=== PATIENT | female | born 1945 | race Caucasian/White ===

== ENCOUNTER → 2017-07-03 | Outpatient (REF) | payer MEDICARE ==
[2016-10-11 15:43] VITALS: BMI 25.4
[~2017-07-03] MED LIST: BIOT10005 PO; BIOT5000 PO; CALC500T6 PO; DIA5 PO; DOCU240C84 PO; FLUO-177 PO; FLUO-201 PO; HYDR-385 PO; IBUP600T22 PO; OXYC-865 PO; POLY17PO25 PO
== END ==
LOC: ZZSENDIN 15:40
PROVIDERS: ATTEND Physician Assistant
DX: Z01.818 Encounter for other preprocedural examination (principal)
CPT/HCPCS: 81001

== ENCOUNTER 2017-07-10 01:08 | Observation (INO) | payer MEDICARE ==
[~2017-07-10] VITALS: Ht 157.5 cm; Wt 64.9 kg
[2017-07-10] VITALS (15 sets, daily range): BP systolic 112–181; BP diastolic 58–92
[2017-07-10] MEDS ORDERED: PROPOFOL EMUL(*) 10MG/ML 20 ML 20 ML ONE (07:02)
[2017-07-10] MEDS ORDERED: DEXAMETHASONE SOD 4 MG/ML VIAL ONE (07:02)
[2017-07-10] MEDS ORDERED: LIDOCAINE MPF 1% 5 ML VIAL ONE (07:02)
[2017-07-10] MEDS ORDERED: ONDANSETRON 4 MG/2 ML VIAL ONE (07:02)
--- NOTE | 2017-07-10 07:21 | LEVENE H&P ---
DATE OF ADMISSION: July 10, 2017 IDENTIFICATION/CHIEF COMPLAINT The patient is a 72-year-old woman with a chief complaint of right knee pain. HISTORY OF PRESENT ILLNESS The patient has a longstanding history of knee arthritis, progressively painful and debilitating, refractory to conservative care. Surgery is indicated to relieve symptoms after failure of nonoperative measures. PAST MEDICAL HISTORY Notable for arthritis, spinal problems. ALLERGIES CODEINE that causes hives. She is sensitive to ADHESIVES, and has nausea and vomiting with SULFA, but not a true drug allergy. CURRENT MEDICATIONS 1. Fluoxetine 10 mg p.o. q.day. 2. Variety of vitamins. PAST SURGICAL HISTORY Notable for spinal fusion, contralateral knee replacement and ankle fusion. FAMILY HISTORY Notable for a mother with dementia, father with emphysema. SOCIAL HISTORY Negative for tobacco use. Drinks alcohol daily, a glass of wine, denies abuse. REVIEW OF SYSTEMS Negative. PHYSICAL EXAMINATION GENERAL: This is a well-developed, well-nourished female who appears stated age. HEENT: She is normocephalic, atraumatic. NECK: Supple. LUNGS: Clear. HEART: Regular. ABDOMEN: Soft. ORTHOPEDIC EXAMINATION: The right knee has crepitus. She has an effusion present. Extensor function is intact. Gross stability is good. Stiff at the end range. Calves nontender. Neurovascular function is intact. Skin is in good condition. RADIOGRAPHIC DATA Radiographs demonstrate end-stage DJD. ASSESSMENT Right knee end-stage degenerative joint disease, progressively painful and debilitating, refractory to conservative care. PLAN Per patient request, we are going to proceed with total knee arthroplasty. Nature of this procedure, risks, benefits, the anticipated rehab course were reviewed. Risks include but are not limited to , major medical or anesthetic complication, infection, neurovascular injury, blood transfusion, stiffness, scarring, fracture, tendon rupture, instability, implant loosening, migration or failure, persistent or recurrent pain, need for additional surgery , and other unforeseen. She understands and wishes to proceed. Signed consent was placed in the chart, no guarantees given or implied. GRACIE
[2017-07-10] MEDS ORDERED: NORMOSOL R SOLN(*) 1000 ML BAG 1,000 ML IV PRN ×2 (07:45→11:25)
[2017-07-10] MEDS ORDERED: FAMOTIDINE 20 MG TAB PO ONE (07:45)
[2017-07-10] MEDS ORDERED: ceFAZolin(*) 1 GM VIAL 1 GM in NS(*) 0.9% 100 ML ADDVANT BAG 100 ML IVPB ONE (07:45)
[2017-07-10] MEDS ORDERED: cloNIDine EPIDUR INJ 100MCG/ML 40 MCG, ROPIVACAINE 0.5% 20 ML VIAL 25 ML, EPINEPHrine H... INJ ONE (07:45)
[2017-07-10] MEDS ORDERED: MIDAZOLAM 2 MG/2 ML VIAL IVP PRN (07:45)
[2017-07-10] MEDS ORDERED: LIDOCAINE/SOD BICARB 8.4% SYR ID ONE (07:45)
[2017-07-10] MEDS ORDERED: TRANEXAMIC AC 1000 MG/10ML SDV 1,000 MG in DEXTROSE 5% 50 ML BAG 50 ML IV ONE (07:45)
[2017-07-10] MEDS ORDERED: fentaNYL CITR 250 MCG/5 ML AMP ONE (08:13)
[2017-07-10] MEDS ORDERED: LACTATED RINGER 3000 ML BAG IR ONE (09:37)
[2017-07-10] MEDS ORDERED: LABETALOL HCL 100 MG/20ML VIAL ONE (09:45)
[2017-07-10] MEDS ORDERED: fentaNYL CITR 100 MCG/2 ML AMP ONE ×2 (11:13→11:28)
[2017-07-10] MEDS ORDERED: MEPERIDINE 50 MG/ML SYR ONE (11:15)
[2017-07-10] MEDS ORDERED: BENZOCAINE/MENTHOL 1 EACH LOZG PO PRN (11:25)
[2017-07-10] MEDS ORDERED: FLUSH 10 ML SYR IVP PRN (11:25)
[2017-07-10] MEDS ORDERED: ACETAMINOPHEN 325 MG TAB PO PRN (11:25)
[2017-07-10] MEDS ORDERED: diphenhydrAMINE 50 MG/ML VIAL IVP PRN (11:25)
[2017-07-10] MEDS ORDERED: MAGNESIUM HYDROXIDE* 30ML UDCP PO PRN (11:25)
[2017-07-10] MEDS ORDERED: PROMETHAZINE 25 MG/ML 1 ML AMP IVP PRN (11:25)
[2017-07-10] MEDS ORDERED: ZOLPIDEM TARTRATE 5 MG TAB PO PRN (11:25)
[2017-07-10] MEDS ORDERED: BISACODYL 10 MG SUPP PR PRN (11:25)
[2017-07-10] MEDS: POLYETHYLENE GLYCOL 17 GM PKT PO SCH (13:14)
[2017-07-10] MEDS: FLUoxetine HCL 10 MG CAP PO SCH (13:14)
--- NOTE | 2017-07-10 13:43 | Hospitalist Consultation ---
History of Present Illness Requesting Physician Nadja Lovett MD Reason for Consult s/p R-TKA and medical management Chief Complaint s/p R-TKA and knee pain History of Present Illness Mrs. Ceballos is a 72 y.o. female with PMH of Arthritis s/p L-TKA in the past , Anxiety and Low back pain s/p Spinal fusion underwent R-TKA by Dr. Lovett today. She tolerated the anesthesia and surgical procedure. I was asked to evaluate this patient for her medical problems during her hospital stay. She is afebrile, asymptomatic and hemodynamically stable. History Home Meds Reported Medications Biotin (Biotin) 10,000 Mcg Capsule, 35649 MCG PO QDAY 07/03/17 Fluoxetine Hcl (PROZAC) 10 Mg Capsule, 10 MG PO QDAY, CAPSULE 04/18/17 Polyethylene Glycol 3350 (MIRALAX) 17 Gm Powd.pack, 17 GM PO QDAY, PKT 10/09/16 Calcium Carbonate (CALCIUM) 500 Mg Tablet, 500 MG PO QDAY 05/20/16 Discontinued Reported Medications Docusate Calcium (SURFAK) 240 Mg Capsule, 240 MG PO QDAY Y for CONSTIPATION, # 14 CAPSULE 04/20/17 Diazepam (VALIUM) 5 Mg Tablet, 5 MG PO Q8H Y for SPASMS, #25 TAB 04/20/17 Hydrocodone Bit/Acetaminophen (HYDROCODON-ACETAMINOPHEN 5-325) 1 Each Tablet, 1- 2 EACH PO Q6H Y for PAIN, #49 TAB 04/20/17 Biotin (Biotin) 5,000 Mcg Tab.rapdis, 1 TAB PO BID 04/18/17 Allergies: Coded Allergies: adhesive tape (Verified Allergy, Severe, blistering, 01/21/17) Sulfa (Sulfonamide Antibiotics) (Verified Allergy, Mild, 01/21/17) codeine (Verified Allergy, Mild, hives, 01/21/17) Uncoded Allergies: narcotics (Adverse Reaction, Mild, "itch skin off", 05/20/16) Patient History: FH: Alzheimers disease MOTHER FH: emphysema FATHER Hx Smoking: No Smoking Status: Never Smoker Exposure to Second Hand Smoke?: Yes (parents smoked) Caffeine Intake: Coffee, Tea Caffeine/Cups Per Day: 3 Hx Alcohol Use: Yes Alcohol Used: Wine Hx Substance Use Disorder: No Social Drug Use: Never Review of Systems Constitutional: No Fever, No Chills Neurological: No Confusion, No Weakness, No Dizziness Eyes: Loss of Vision, No Vision Change ENT: No Sinus Congestion, No Sore Throat Cardiovascular: No Chest Pain, No Palpitations Respiratory: No Shortness of Breath, No Cough Gastrointestinal: No Nausea, No Vomiting, No Diarrhea, No Constipation, No Abdominal Pain Genitourinary: No Dysuria, No Hematuria Musculoskeletal: Pain, Impaired Mobility, No Sprain, No Strain Psychiatric: Anxiety, No Depression Exam Vital Signs Vital Signs Date Time Temp Pulse Resp B/P (MAP) Pulse Ox O2 Delivery O2 Flow Rate FiO2 07/10/17 12:30 94 Nasal Cannula 1.0 07/10/17 12:30 97.6 89 20 151/83 (105) General Appearance: Alert, Awake, No Acute Distress, Afebrile Neuro: No Gross deficits Eyes: PERRLA ENT: Normal Cardiovascular: Normal Rhythm & Peripheral Pulses Respiratory: No Respiratory Distress GI: Abd Soft and Non-Tender : Normal Extremities: Other (RLE with decrease ROM and tenderness) Integumentary: Skin Intact without Lesion / Mass Psych: Alert & Oriented X3, Appropriate Mood & Affect Assessment and Plan Problems: (1) S/P total knee arthroplasty Status: Acute Assessment & Plan: Management as per surgery and PT I will start Aspirin 325mg po qd for DVTP I will use Miralax for constipation. ROM exercised by PT (2) ANXIETY DISORDER DUE TO KNOWN PHYSIOLOGICAL CONDITION Status: Chronic Assessment & Plan: I will continue her Fluoxetine 10mg po qhs Time Spent on Plan of Care: < 30 min Copies to: NADJA LOVETT MD; TAN LUI MD Venous Thromboembolism VTE Risk Physician Assess for VTE Risk: Yes Patient's VTE Risk: Low VTE Diagnostic Test 2 Days Prior to Admit: No Antithrombotics Is Pt On Any Antithrombotics?: No Exam Sepsis Risk: No Definite Risk FLAQUITO ARANDA MD Jul 10, 2017 13:43
[2017-07-10] MEDS: traMADol 50 MG TAB PO PRN (14:05)
--- NOTE | 2017-07-10 14:34 | RADIOLOGY IMAGING REPORT ---
FACILITY: [facility] [place] PATIENT NAME: Jing Ceballos : 1945 MR: [id number] V: [id number] EXAM DATE: ORDERING PHYSICIAN: NADJA STANLEY TECHNOLOGIST: Location: [facility] Patient: Jing Ceballos : 1945 Visit/Account:[id number] Date of Sevice: 07/10/2017 Right knee, two views. HISTORY: Right total knee arthroplasty. COMPARISON: None. The articular surfaces of the distal femur, proximal tibia, and patella have been resected and replac ed with prosthetic components. The components have been secured with cement. Mild cortical irregular ities are present in the lateral aspect of the lateral femoral epicondyle. Alignment is otherwise un remarkable. Air is present in the soft tissues. Skin clips are present anteriorly. IMPRESSION: Slight cortical irregularities of the lateral femoral epicondyle. Otherwise unremarkable knee replacement. Report Dictated By: Real Chawla MD at 07/10/2017 2:27 PM Report E-Signed By: Real Chawla MD at 07/10/2017 2:30 PM WSN:CLIFFORD
[2017-07-10] MEDS: DIAZEPAM 5 MG TAB PO PRN (16:17)
[2017-07-10] MEDS: IBUPROFEN 800 MG TAB PO SCH (16:17)
[2017-07-10] MEDS: ceFAZolin 1 GM VIAL IVPB SCH (16:17)
[2017-07-10] MEDS: diphenhydrAMINE 25 MG CAP PO PRN (18:32)
[2017-07-10] MEDS: APAP/HYDROCODONE 325/7.5 TAB PO PRN ×2 (18:32→19:05)
--- NOTE | 2017-07-11 00:03 | OPERATIVE REPORT 1 ---
EVENT DATE: July 10, 2017 SURGEON: Evan Lovett MD ANESTHESIOLOGIST: José Pineda MD ANESTHESIA: General plus adductor canal block. ANIMAL KEEPER HEAD: Shree Acuña PA-C PREOPERATIVE DIAGNOSIS Right knee degenerative joint disease. POSTOPERATIVE DIAGNOSIS Right knee degenerative joint disease. PROCEDURE PERFORMED Right total knee arthroplasty. ESTIMATED BLOOD LOSS Minimal. DRAINS None. SPECIMENS None. COMPLICATIONS None apparent. TOURNIQUET TIME 62 minutes. IMPLANTS USED MicroPort medial pivot knee, a 4 right femur, a 4 standard tibial baseplate, a 10 mm right 4 CS insert, and a 26 mm patella. INDICATIONS Jing is a 72-year-old woman with intractable pain and disability related to end-stage knee arthritis. Surgery is indicated to relieve symptoms after failure of nonoperative measures. DESCRIPTION OF PROCEDURE The patient was taken to the operating room and placed supine on the operating table. General anesthesia was induced after an adductor canal block was placed preoperatively by the anesthesiologist. Antibiotics and TXA were administered IV. The right lower extremity was prepped and draped in the usual sterile fashion for orthopedic surgery. The limb was exsanguinated with an Esmarch bandage. The tourniquet was inflated to 250 mmHg. A midline longitudinal incision was made and carried down through the skin and subcutaneous tissue to the deep fascia. A full-thickness flap was developed far enough medially to allow a medial parapatellar arthrotomy to be performed. The patella was everted , and the knee was brought into the flexed position. The fat pad, anterior horn to the menisci, and the cruciate ligaments were debrided. Subperiosteal capsule release was performed circumferentially 1 cm around the upper tibial plateau. A step drill was used to enter the distal femur. A 10-inch long alignment guide was used to engage the isthmus. The cut was set for 6 degrees of valgus relative to anatomic axis. The 10 mm resection block was applied and pinned. Cuts were made with an oscillating saw. The sizing guide was applied and positioned for the high point on the lateral ridge. It was set for 3 degrees of external rotation relative to the posterior condyles. There was no evidence of lateral condyle hypoplasia. The block was pinned, and a size 4 was selected. The four-in-one cutting block was applied. Anterior, posterior, posterior chamfer, and anterior chamfer cuts were made respectively. The trial femur had a nice fit. Attention was turned to the tibial preparation. The extramedullary guide was applied and positioned for varus, valgus, posterior slope, and rotation. This was set to resect 2 mm from the relatively deficit lateral tibial plateau. It was dropped down a millimeter or so to ensure an adequate cut. The block was pinned. Extramedullary alignment checked and cuts made with an oscillating saw. After removal of the spurs, gaps were balanced and symmetrical. No additional formal release was required. The 4 tibial baseplate provided optimum bony coverage without soft tissue overhang. The rotational alignment was noted, and this was pinned. The trial CS insert was inserted along with the trial femur. The bone was resected at the chip for the trochlea, and gaps were balanced and symmetrical with ideal soft tissue tension , including a 90-degree drawer test and rock stable in full extension. The patella was then everted and taken from a starting thickness of 20 mm to a residual of 14 mm with a patellar clamp and oscillating saw. The 26 mm patella provided optimal bony coverage. Lug holes were drilled. The patella tracked nicely only after lateral releases. The lateral retinaculum was quite tight. The lateral release was performed inside out with electrocautery, and then the patella tracks nicely. The final tibial preparation was completed, including boss reaming and punching in the fins. The surfaces were copiously lavaged. Mixed polymethyl methacrylate was made, and then the components were cemented in a single stage. Once the cement fully polymerized, the tourniquet was deflated. Meticulous hemostasis was assured. The joint was reduced. The arthrotomy was closed in flexion with #2 Ethibond, the subcutaneous tissue with 3-0 Vicryl, and the skin with surgical rogerio. Xeroform was applied with 4 x 4 dry, sterile dressing. The patient was awakened from anesthesia and taken to the recovery room in stable condition having tolerated the procedure well. The plan is for the standard TKA rehab protocol. [facility]PITAL[facility]elia
[2017-07-11] MEDS: IBUPROFEN 800 MG TAB PO SCH ×3 (01:03→17:26)
[2017-07-11] MEDS: ceFAZolin 1 GM VIAL IVPB SCH ×2 (01:04→08:32)
[2017-07-11 03:41] VITALS: BP 133/70
[2017-07-11] MEDS: APAP/HYDROCODONE 325/7.5 TAB PO PRN ×6 (03:48→20:21)
[2017-07-11] MEDS: diphenhydrAMINE 25 MG CAP PO PRN ×3 (03:53→17:36)
[2017-07-11] MEDS: traMADol 50 MG TAB PO PRN ×4 (07:48→20:18)
[2017-07-11] MEDS: POLYETHYLENE GLYCOL 17 GM PKT PO SCH (08:31)
[2017-07-11] MEDS: CALCIUM OYSTER SHELL 500MG TAB PO SCH (08:31)
[2017-07-11] MEDS: ASPIRIN 325 MG TAB PO SCH (08:31)
[2017-07-11] MEDS: FLUoxetine HCL 10 MG CAP PO SCH (08:31)
[2017-07-11 08:40] VITALS: BP 138/75
[2017-07-11 09:04] VITALS: Ht 157.5 cm; Wt 64.9 kg
[2017-07-11] MEDS: DIAZEPAM 5 MG TAB PO PRN ×2 (11:20→20:31)
[2017-07-11 12:03] VITALS: BP 157/74
--- NOTE | 2017-07-11 14:23 | Hospitalist Progress Note ---
Subjective Progress Notes Subjective She denies any current problems. Physical Exam Vital Signs Date Time Temp Pulse Resp B/P (MAP) Pulse Ox O2 Delivery O2 Flow Rate FiO2 07/11/17 14:03 92 07/11/17 12:03 98.7 74 18 157/74 (101) Room Air 07/11/17 08:40 1.0 Intake and Output 07/12/17 07:01 Intake Total 480 ml Balance 480 ml Intake Oral 480 ml General Appearance: Alert, Awake Cardiovascular: Regular Rate and Rhythm Respiratory: Clear to Auscultation Assessment and Plan Problems: (1) S/P total knee arthroplasty Status: Acute Assessment & Plan: Management as per orthopedics. Aspirin 325mg po qd for DVT prophylaxis. (2) ANXIETY DISORDER DUE TO KNOWN PHYSIOLOGICAL CONDITION Status: Chronic Assessment & Plan: Continue her Fluoxetine 10mg po qHS. Exam Sepsis Risk: No Definite Risk CASIMIRO BECKMAN MD Jul 11, 2017 14:22
[2017-07-11 19:50] VITALS: BP 146/76
[2017-07-11 23:40] VITALS: BP 147/76
[2017-07-12] MEDS: diphenhydrAMINE 25 MG CAP PO PRN ×2 (00:27→08:43)
[2017-07-12] MEDS: IBUPROFEN 800 MG TAB PO SCH ×3 (00:27→17:24)
[2017-07-12] MEDS: APAP/HYDROCODONE 325/7.5 TAB PO PRN ×4 (00:28→17:24)
[2017-07-12 03:34] VITALS: BP 154/80
[2017-07-12 08:24] VITALS: BP 133/67
[2017-07-12] MEDS: CALCIUM OYSTER SHELL 500MG TAB PO SCH (08:27)
[2017-07-12] MEDS: POLYETHYLENE GLYCOL 17 GM PKT PO SCH (08:27)
[2017-07-12] MEDS: FLUoxetine HCL 10 MG CAP PO SCH (08:28)
[2017-07-12] MEDS: ASPIRIN 325 MG TAB PO SCH (08:28)
[2017-07-12] MEDS: DIAZEPAM 5 MG TAB PO PRN (09:49)
[2017-07-12] MEDS: DOCUSATE SODIUM 100 MG CAP PO SCH ×2 (09:49→21:00)
[2017-07-12] MEDS: traMADol 50 MG TAB PO PRN (11:30)
[2017-07-12 11:41] VITALS: BP 141/69
[2017-07-12] MEDS ORDERED: KETOROLAC 15 MG/ML VIAL IVP ONE (12:00)
[2017-07-12] MEDS ORDERED: MORPHINE 2 MG/ML SYR IVP PRN (12:00)
--- NOTE | 2017-07-12 14:04 | Hospitalist Progress Note ---
Subjective Progress Notes Subjective Mrs. Ceballos is a 72 y.o. female with PMH of Arthritis s/p L-TKA in the past , Anxiety and Low back pain s/p Spinal fusion underwent R-TKA by Dr. Stanley today. She tolerated the anesthesia and surgical procedure. I was asked to evaluate this patient for her medical problems during her hospital stay. She is afebrile, asymptomatic and hemodynamically stable. 07/12: She is constipated and still feels weak and pain. She supposed to go to [facility] but plan has changed and possible d/c home in am. Patient Complains of: Neurological: Weakness, No: Confusion, Dizziness Cardiovascular: No: Chest Pain, Palpitations Respiratory: No: Cough, Congestion, Shortness of Breath, Wheezing Gastrointestinal: No Nausea, No Vomiting, No Bowel Movement Genitourinary: No Dysuria, No Hematuria Musculoskeletal: Pain, No: Sprain, Strain, Impaired Mobility Physical Exam Vital Signs Date Time Temp Pulse Resp B/P (MAP) Pulse Ox O2 Delivery O2 Flow Rate FiO2 07/12/17 12:53 86 Room Air 07/12/17 11:41 98.4 81 16 141/69 (93) 07/12/17 08:24 0.5 Intake and Output 07/13/17 07:00 Intake Total 340 ml Balance 340 ml Intake Oral 340 ml # Voids 1 General Appearance: Awake, No Acute Distress, Afebrile Neuro: No Gross deficits Eyes: PERRLA ENT: Normal Neck: No Masses Cardiovascular: Regular Rate and Rhythm Respiratory: No Respiratory Distress GI: Soft and Non-Tender Extremities: Soft and Non Tender Integumentary: Skin Intact without Lesion / Mass Psych: Alert & Oriented X3, Appropriate Mood & Affect (decrease ROM -RLE) Assessment and Plan Problems: (1) S/P total knee arthroplasty Status: Acute Assessment & Plan: Management as per orthopedics. Aspirin 325mg po qd for DVT prophylaxis. 07/12: Management as per surgery and PT. Anticipated d/c in am (2) ANXIETY DISORDER DUE TO KNOWN PHYSIOLOGICAL CONDITION Status: Chronic Assessment & Plan: Continue her Fluoxetine 10mg po qHS. Time Spent on Plan of Care: < 30 min Copies to: NADJA STANLEY MD Exam Sepsis Risk: No Definite Risk FLAQUITO ARANDA MD Jul 12, 2017 14:04
[2017-07-12 14:39] VITALS: BP 139/70
[2017-07-12 20:14] VITALS: BP 109/62
[2017-07-12 23:59] VITALS: BP 128/74
[2017-07-13] MEDS: IBUPROFEN 800 MG TAB PO SCH ×2 (01:24→08:35)
[2017-07-13] MEDS: APAP/HYDROCODONE 325/7.5 TAB PO PRN ×2 (01:24→08:35)
[2017-07-13 07:31] VITALS: BP 145/77
[2017-07-13] MEDS ORDERED: HYDR-4308 PO (08:30)
[2017-07-13] MEDS ORDERED: ASPI-764 PO (08:32)
[2017-07-13] MEDS: ASPIRIN 325 MG TAB PO SCH (08:36)
[2017-07-13] MEDS: DOCUSATE SODIUM 100 MG CAP PO SCH (08:36)
[2017-07-13] MEDS: FLUoxetine HCL 10 MG CAP PO SCH (08:36)
[2017-07-13] MEDS: CALCIUM OYSTER SHELL 500MG TAB PO SCH (08:36)
[2017-07-13] MEDS: POLYETHYLENE GLYCOL 17 GM PKT PO SCH (08:36)
[2017-07-13 12:18] VITALS: BP 121/64
--- NOTE | 2017-07-13 16:32 | Hospitalist Progress Note ---
Subjective Progress Notes Subjective Subjective Mrs. Ceballos is a 72 y.o. female with PMH of Arthritis s/p L-TKA in the past , Anxiety and Low back pain s/p Spinal fusion underwent R-TKA by Dr. Stanley today. She tolerated the anesthesia and surgical procedure. I was asked to evaluate this patient for her medical problems during her hospital stay. She is afebrile, asymptomatic and hemodynamically stable. 07/12: She is constipated and still feels weak and pain. She supposed to go to [facility] but plan has changed and possible d/c home in am. 07/13: She is afebrile, hemodynamically and medically stable and cleared by surgery to go home today. She will follow Dr. Stanley Patient Complains of: Neurological: Other, No: Weakness Cardiovascular: No: Chest Pain Respiratory: No: Cough, Shortness of Breath Gastrointestinal: No Nausea, No Vomiting Genitourinary: No Dysuria, No Hematuria Musculoskeletal: Pain, Impaired Mobility, Other, No: Sprain, Strain Physical Exam Vital Signs Date Time Temp Pulse Resp B/P (MAP) Pulse Ox O2 Delivery O2 Flow Rate FiO2 07/13/17 12:18 98.2 85 16 121/64 (83) 89 Room Air 07/12/17 23:59 1.0 Intake and Output 07/14/17 07:00 Intake Total 320 ml Balance 320 ml Intake Oral 320 ml # Voids 1 General Appearance: Alert, No Acute Distress, Afebrile Neuro: No Gross deficits Eyes: PERRLA ENT: Normal Cardiovascular: Regular Rate and Rhythm Respiratory: No Respiratory Distress GI: Soft and Non-Tender Extremities: Other (decrease ROMRLE) Psych: Alert & Oriented X3, Appropriate Mood & Affect Assessment and Plan Problems: (1) S/P total knee arthroplasty Status: Acute Assessment & Plan: Management as per orthopedics. Aspirin 325mg po qd for DVT prophylaxis. 07/12: Management as per surgery and PT. Anticipated d/c in am 07/13: She is being d/c'd today and f/u with (2) ANXIETY DISORDER DUE TO KNOWN PHYSIOLOGICAL CONDITION Status: Chronic Assessment & Plan: Continue her Fluoxetine 10mg po qHS. Time Spent on Plan of Care: < 30 min Critical Time Spent: 1st 30-74 Minutes Copies to: NADJA STANLEY MD Exam Sepsis Risk: No Definite Risk FLAQUITO ARANDA MD Jul 13, 2017 16:32
== END 2017-07-13 08:32 | disposition home or self-care (01) ==
LOC: OR 01:08 → INTOOBSV 12:20 → MED 12:20
PROVIDERS: ADMIT Orthopaedic Surgery; ATTEND Orthopaedic Surgery
DX: M17.11 Unilateral primary osteoarthritis, right knee (principal); M25.461 Effusion, right knee
CPT/HCPCS: 27447; 36415; 73560; 85610; 86850; 86900; 86901; 97116; 97161; 97530; A9270; C1713; C1776; G0378; J0171; J0690; J0735; J1100; J1885; J2001; J2175; J2250; J2270; J2405; J2704; J2795; J3010; J3490; J7050; J7060; Q0163